=== PATIENT | male | born 1930 | race Caucasian/White ===

== ENCOUNTER 2019-08-21 13:01 | Inpatient (IN) | payer OTHER ==
[~2019-08-21] VITALS: Ht 180.3 cm; Wt 77.7 kg
[~2019-08-21 13:01] MED LIST: ASPIRIN81 MG PO; FINASTERIDE5 MG PO; HYDROCHLOROTHIA25 MG PO; LOSARTAN-HCTZ1 EACH PO; LOVASTATIN20 MG PO; METOPROLOL TART25 MG PO; PANTOPRAZOLE SO40 MG PO; TERAZOSIN HCL2 MG PO
--- OUTSIDE RECORDS SUMMARY | 2019-08-21 13:05 | XMS REPORT ---
Author Author 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 Allergies, Adverse Reactions, Alerts Allergy Name Allergy Type Status Severity Reaction(s) Onset Date Inactive Date Treating Clinician Comments tamsulosin DA Active U 2019-04-19 00:00:00 FLOMAX DA Active U 2008-06-17 00:00:00 No Known Contrast Allergies DA Active U 2008-06-17 00:00:00 No Known Food Allergies DA Active U 2008-06-17 00:00:00 No Known Other Allergies DA Active U 2008-06-17 00:00:00 Medications This patient has no known medications. Results Test Description Test Time Test Comments Text Results Atomic Results Result Comments TISSUE EXAM 2019-07-19 10:35:00 Surgical Pathology Report Case: [id number] Authorizing Provider: Mirta Iqbal MD Collected: 07/06/2019 1416 Ord ering Location: [address] Received: 07/06/2019 1521 SERVICE Pathologist: Pita Bradley MD Specimen: Biopsy, Liver The addendum is being issued to report the results of In situ hybridization for albumin RNA, performed and interpreted by [facility]. [address] [place] [id number].Per Provided reportIn-situ hybridization for albumin RNA on the neoplastic cells: POSITIVECommentThe significance of positive result of albumin MARIZOL on neoplastic cells suggests that the tumor is intrahepatic in origin (see reference). 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 Clinical and imaging correlation is recommended. Reference:Darleen Borrego, et al. Detection of Albumin Expression by RNA In Situ Hybridization Is a Sensitive and Specific Method for Identification of Hepatocellular Carcinomas and Intrahepatic Cholangiocarcinomas. Am J Clin Pathol. 2018 December 09;150(1):58-64See scanned report from PropathAddendum electronically signed by Pita Bradley MD on 07/19/2019 at 10:35 AMLIVER, ULTRASOUND-GUIDED NEEDLE BIOPSIES OF MASS- POORLY DIFFERENTIATED CARCINOMA- SEE COMMENT Signing Pathologist Direct Phone Line: [phone] signed by Pita Bradley MD on 07/13/2019 at 5:51 PMPreliminary result electronically signed by Pita Bradley MD on 07/11/2019 at 2:00 PMPreliminary result electronically signed by Terry Arnold MD on 07/07/2019 at 8:08 AMThe tumor shows poorly differentiated morphology. Occasional mucin vacuole suggests this to be an adenocarcinoma.The immunoprofile of CK7+, CK19+ is nonspecific. Clinical correlation is recommended.75651, 42370, 14797 x40Ptekcwgi in formalin labeled with the patient's name, MRN and "liver biopsy" are five iqbal-white to iqbal-red cylindrical soft tissue cores ranging from 0.5 to 1.5 cm in length and 0.1 cm in diameter each. Submitted entirely in one cassette following filtration. JM/plSection shows liver parenchyma infiltrated by poorly differentiated high grade atypical epithelial cells. No gland formation is seen. Occasional mucin vacuole is seen. Immunostains were performed with appropriate controls. The results are as followsThe tumor is positive for CK7, CK19 and CAM 5.2. The tumor is negative for CK20, cdx2, p63, p40, TTF1, glypican 3, ADAIR 3, PSA, Hepar and arginase. The interpretation of this case included the use of immunohistochemistry or special stains.Control Slides Examined: In-house known positive controls were evaluated along with the test tissue. These control slides run alongside of the patients sample show appropriate staining. Internal positive and negative controls when available are evaluated Immunohistochemistry technical testing was [place] [facility] where it was developed and its performance characteristics were determined. It has not been cleared or approved by the U.S. Food and Drug Administration. The FDA has determined that such clearance or approval is not necessary. The test is used for clinical purposes. It should not be regarded as investigational or for research. This laboratory is certified under the Clinical Laboratory Improvement Amendments of 1988 (CLIA-88) as qualified to perform high complexity clinical laboratory testing. U/S, BIOPSY, LIVER 2019-07-10 14:08:00 Reason for exam:->evaluate for metastasis. FINAL REPORT Ultrasound-guided right hepatic mass biopsy. History: Liver metastasis. Modality: Ultrasound Sedation: Versed 0.5 mg and fentanyl 25 mcg was given intravenously for conscious sedation. Vital signs were monitored throughout the procedure by a nurse, and remained stable. Physician intra- service time was 15 minutes. Anesthesia: Two percent Lidocaine without epinephrine. Approach: Right hepatic lobe mass Estimated blood loss: < 5 cc. Specimen: Four 18-gauge core biopsy specimens. pole lift operator: Himanshu Bowles MD. Poker In: None. Technique: Informed written consent was obtained. Discussion of risks, benefits, and alternatives were made with the patient. The patient expressed understanding and agreed to proceed. A universal timeout was performed prior to starting the procedure. The patient's liver was scanned with ultrasound multiple hypoechoic liver metastasis were identified. A 2.7 x 2.2 cm mass in the right hepatic lobe was targeted for biopsy. The patient's skin was marked, prepped with correcting, draped in usual sterile fashion. Local anesthesia was achieved with lidocaine. Under direct ultrasound guidance 17-gauge coaxial introducer needle was advanced into the targeted hepatic mass. Once the needle tip was within the mass inner stylette was removed and a 18-gauge side cutting Temno needle was used to obtain four core biopsy specimens of the mass under direct ultrasound guidance. The needles were removed. Post procedure imaging demonstrated no evidence of hemorrhage or hematoma formation. The patient tolerated the procedure well. Impression: Technically successful uncomplicated ultrasound-guided right hepatic mass biopsy as described above. Signed: Himanshu Bowles MDReport Verified Date/Time: 07/10/2019 14:08:16 Reading Location: [facility] P048 Angio Body Reading Room UE EXAM 2019-07-10 10:04:00 Surgical Pathology Report Case: [id number] Authorizing Provider: Lucien Gonzales Collected: 07/07/2019 0827 MD Toshia Ordering Location: [address] Received: 07/07/2019 1351 SERVICE Pathologist: Vaibhav Bruce MD Specimen: Biopsy, Gastroesophageal Junction, Schatzki ring biopsy at GE junction A. GASTROESOPHAGEAL JUNCTION, BIOPSY: - SQUAMOUS MUCOSA WITH NO SIGNIFICANT DIAGNOSTIC ABNORMALITY - NEGATIVE FOR INTRA-EPITHELIAL EOSINOPHILS - NEGATIVE FOR DYSPLASIA/ MALIGNANCY Signing Pathologist Direct Phone Line: [phone] signed by Vaibhav Bruce MD on 07/10/2019 at 10:04 [id number] dysphagiaBiopsy, Gastroesophageal JunctionReceived in formalin labeled with the patient's name, MRN and "GE junction biopsy" are three iqbal-white soft tissue fragments aggregating to 0.4 x 0.3 x 0.2 cm. Submitted entirely in one cassette following filtration. JM/plPerformed. BASIC METABOLIC PANEL 2019-07-07 06:53:00 SODIUM (BEAKER) (test vhxk=226) 133 meq/L 136-145 POTASSIUM (BEAKER) (test wpfc=569) 4.1 meq/L 3.5-5.1 CHLORIDE (BEAKER) (test mrzf=193) 103 meq/L 98-107 CO2 (BEAKER) (test dhcp=473) 22 meq/L 22-29 BLOOD UREA NITROGEN (BEAKER) (test luwk=238) 8 mg/dL 7-21 CREATININE (BEAKER) (test gsca=664) 0.74 mg/dL 0.57-1.25 GLUCOSE RANDOM (BEAKER) (test rmqe=285) 71 mg/dL 70-105 CALCIUM (BEAKER) (test lhub=130) 7.9 mg/dL 8.4-10.2 EGFR (BEAKER) (test wios=8157) 100 mL/min/1.73 sq m ESTIMATED GFR IS NOT ACCURATE CREATININE CLEARANCE IN PREDICTING GLOMERULAR FILTRATION RATE. ESTIMATED GFR IS NOT APPLICABLE FOR DIALYSIS PATIENTS. [id number] 06:40:00* Test Item Value Reference Range Comments MAGNESIUM (BEAKER) (test fufb=271) 1.9 mg/dL 1.6-2.6 HEPATIC FUNCTION [id number] 06:40:00* Test Item Value Reference Range Comments TOTAL PROTEIN (BEAKER) (test qupd=042) 5.4 gm/dL 6.0-8.3 ALBUMIN (BEAKER) (test bzqf=1239) 2.2 g/dL 3.5-5.0 BILIRUBIN TOTAL (BEAKER) (test sddh=377) 1.2 mg/dL 0.2-1.2 BILIRUBIN DIRECT (BEAKER) (test gmhk=719) 0.9 mg/dL 0.1-0.5 ALKALINE PHOSPHATASE (BEAKER) (test hwbq=277) 408 U/L 40-150 AST (SGOT) (BEAKER) (test sskz=169) 53 U/L 5-34 ALT (SGPT) (BEAKER) (test xvid=867) 23 U/L 6-55 CBC W/PLT COUNT & AUTO [id number] 05:48:00* Test Item Value Reference Range Comments WHITE BLOOD CELL COUNT (BEAKER) (test ygnl=104) 8.5 K/ L 3.5-10.5 RED BLOOD CELL COUNT (BEAKER) (test vfit=816) 4.11 M/ L 4.63-6.08 HEMOGLOBIN (BEAKER) (test gruk=733) 11.4 GM/DL 13.7-17.5 HEMATOCRIT (BEAKER) (test qmzl=052) 34.5 % 40.1-51.0 MEAN CORPUSCULAR VOLUME (BEAKER) (test ckaz=641) 83.9 fL 79.0-92.2 MEAN CORPUSCULAR HEMOGLOBIN (BEAKER) (test czho=016) 27.7 pg 25.7-32.2 MEAN CORPUSCULAR HEMOGLOBIN CONC (BEAKER) (test sdbm=810) 33.0 GM/DL 32.3-36.5 RED CELL DISTRIBUTION WIDTH (BEAKER) (test tgff=213) 16.9 % 11.6-14.4 PLATELET COUNT (BEAKER) (test wbgm=427) 176 K/CU MM 150-450 MEAN PLATELET VOLUME (BEAKER) (test gewc=642) 10.0 fL 9.4-12.4 NUCLEATED RED BLOOD CELLS (BEAKER) (test pdgz=961) 0 /100 WBC 0-0 NEUTROPHILS RELATIVE PERCENT (BEAKER) (test ylpo=763) 69 % LYMPHOCYTES RELATIVE PERCENT (BEAKER) (test nsqk=287) 15 % MONOCYTES RELATIVE PERCENT (BEAKER) (test blud=515) 11 % EOSINOPHILS RELATIVE PERCENT (BEAKER) (test efil=294) 4 % BASOPHILS RELATIVE PERCENT (BEAKER) (test xzah=374) 1 % NEUTROPHILS ABSOLUTE COUNT (BEAKER) (test afvk=682) 5.90 K/ L 1.78-5.38 LYMPHOCYTES ABSOLUTE COUNT (BEAKER) (test eyfz=425) 1.25 K/ L 1.32-3.57 MONOCYTES ABSOLUTE COUNT (BEAKER) (test qsjp=831) 0.97 K/ L 0.30-0.82 EOSINOPHILS ABSOLUTE COUNT (BEAKER) (test twjg=258) 0.34 K/ L 0.04-0.54 BASOPHILS ABSOLUTE COUNT (BEAKER) (test lfog=775) 0.04 K/ L 0.01-0.08 IMMATURE GRANULOCYTES-RELATIVE PERCENT (BEAKER) (test noed=6723) 0 % 0-1 BASIC METABOLIC [id number] 07:57:00* Test Item Value Reference Range Comments SODIUM (BEAKER) (test qeqi=007) 131 meq/L 136-145 POTASSIUM (BEAKER) (test uhfu=111) 4.0 meq/L 3.5-5.1 CHLORIDE (BEAKER) (test uotj=315) 103 meq/L 98-107 CO2 (BEAKER) (test hdqs=940) 23 meq/L 22-29 BLOOD UREA NITROGEN (BEAKER) (test ekla=585) 8 mg/dL 7-21 CREATININE (BEAKER) (test ellt=928) 0.76 mg/dL 0.57-1.25 GLUCOSE RANDOM (BEAKER) (test hkio=936) 78 mg/dL 70-105 CALCIUM (BEAKER) (test zyiq=895) 7.9 mg/dL 8.4-10.2 EGFR (BEAKER) (test syrm=7932) 97 mL/min/1.73 sq m ESTIMATED GFR IS NOT ACCURATE CREATININE CLEARANCE IN PREDICTING GLOMERULAR FILTRATION RATE. ESTIMATED GFR IS NOT APPLICABLE FOR DIALYSIS PATIENTS. [id number] 07:51:00* Test Item Value Reference Range Comments MAGNESIUM (BEAKER) (test vlnx=618) 1.8 mg/dL 1.6-2.6 HEPATIC FUNCTION [id number] 07:51:00* Test Item Value Reference Range Comments TOTAL PROTEIN (BEAKER) (test wrlw=265) 5.3 gm/dL 6.0-8.3 ALBUMIN (BEAKER) (test hnua=8303) 2.2 g/dL 3.5-5.0 BILIRUBIN TOTAL (BEAKER) (test bqib=530) 1.1 mg/dL 0.2-1.2 BILIRUBIN DIRECT (BEAKER) (test lora=259) 0.8 mg/dL 0.1-0.5 ALKALINE PHOSPHATASE (BEAKER) (test uwjp=752) 392 U/L 40-150 AST (SGOT) (BEAKER) (test gcql=433) 46 U/L 5-34 ALT (SGPT) (BEAKER) (test kacl=626) 18 U/L 6-55 CBC W/PLT COUNT & AUTO [id number] 07:18:00* Test Item Value Reference Range Comments WHITE BLOOD CELL COUNT (BEAKER) (test usqm=158) 8.2 K/ L 3.5-10.5 RED BLOOD CELL COUNT (BEAKER) (test wexo=162) 4.09 M/ L 4.63-6.08 HEMOGLOBIN (BEAKER) (test utyv=084) 11.2 GM/DL 13.7-17.5 HEMATOCRIT (BEAKER) (test bbte=891) 34.3 % 40.1-51.0 MEAN CORPUSCULAR VOLUME (BEAKER) (test wbhz=502) 83.9 fL 79.0-92.2 MEAN CORPUSCULAR HEMOGLOBIN (BEAKER) (test lfhf=297) 27.4 pg 25.7-32.2 MEAN CORPUSCULAR HEMOGLOBIN CONC (BEAKER) (test svtm=968) 32.7 GM/DL 32.3-36.5 RED CELL DISTRIBUTION WIDTH (BEAKER) (test lznj=516) 16.6 % 11.6-14.4 PLATELET COUNT (BEAKER) (test lvpr=816) 182 K/CU MM 150-450 MEAN PLATELET VOLUME (BEAKER) (test wieh=245) 9.5 fL 9.4-12.4 NUCLEATED RED BLOOD CELLS (BEAKER) (test nnvq=075) 0 /100 WBC 0-0 NEUTROPHILS RELATIVE PERCENT (BEAKER) (test dnpw=245) 65 % LYMPHOCYTES RELATIVE PERCENT (BEAKER) (test ywsh=385) 17 % MONOCYTES RELATIVE PERCENT (BEAKER) (test ises=725) 12 % EOSINOPHILS RELATIVE PERCENT (BEAKER) (test kvqs=196) 5 % BASOPHILS RELATIVE PERCENT (BEAKER) (test szrt=175) 0 % NEUTROPHILS ABSOLUTE COUNT (BEAKER) (test omjh=401) 5.32 K/ L 1.78-5.38 LYMPHOCYTES ABSOLUTE COUNT (BEAKER) (test rphc=296) 1.43 K/ L 1.32-3.57 MONOCYTES ABSOLUTE COUNT (BEAKER) (test akmd=528) 1.01 K/ L 0.30-0.82 EOSINOPHILS ABSOLUTE COUNT (BEAKER) (test tlcv=637) 0.40 K/ L 0.04-0.54 BASOPHILS ABSOLUTE COUNT (BEAKER) (test wmib=546) 0.03 K/ L 0.01-0.08 IMMATURE GRANULOCYTES-RELATIVE PERCENT (BEAKER) (test pcjf=5152) 1 % 0-1 CT, CHEST, WITH [id number] 22:27:00FINAL REPORT Chest CT with contrast CLINICAL HISTORY: Dysplasia, concerning for metastatic disease. TECHNIQUE: Contiguous axial images of the chest without contrast. This exam was performed according to the departmental dose optimization program which includes automated exposure control, adjustment of the mA and/or kV according to the patient size, and/or use of an iterative reconstruction technique. COMPARISON: None FINDINGS:Tree-in-bud airspace opacities in the right middle and upper lobes which can be seen in the setting of aspiration versus atypical infection. Scattered pulmonary nodules the largest of which is in the right lower lobe measuring 5 mm, indeterminate. Bilateral lower lobe dependent atelectasis. No pleural effusion. No pneumothorax. Multiple parenchymal calcifications in the right lower lobe may be sequela of prior granulomatous infection. Heart is mildly globally enlarged. Trace pericardial effusion. Amirah nary artery calcifications are moderate. The main pulmonary artery and aorta are normal in caliber. The thyroid gland is unremarkable. The esophagus is normal in caliber. Small hiatal hernia. Trachea is midline and patent. Prominent precard iac lymph node measuring 8 mm and paraesophageal lymph node measuring 5 mm in sh ort axis are nonspecific. Otherwise no mediastinal or hilar adenopathy is identi fied. No axillary adenopathy. No suspicious subcutaneous nodules or fluid collec tions. Focus of sclerosis in the T2 and T3 vertebral body is nonspecific. Flowin g anterior osteophytosis can be seen with dish. No acute fracture. Multiple ill- defined heterogeneously hypodense hepatic lesions are again seen, better evaluat ed on recent CT abdomen pelvis. IMPRESSION:Tree-in-bud airspace opacities in th e right middle and upper lobes which can be seen in the setting of aspiration ve rsus atypical infection. Correlate clinically. Multiple bilateral indeterminate pulmonary nodules measuring up to 5 mm recommend continued close attention on fo llow-up as metastatic disease can have this appearance. Prominent precardiac ly mph node measuring 8 mm and paraesophageal lymph node measuring 5 mm in short ax is are nonspecific. Recommend continued close attention on follow-up imaging. Sm all sclerotic foci in the T2 and T3 vertebral bodies as above. Nonspecific howev er bone scan could be obtained for further evaluation on a nonemergent basis. He patic metastatic disease that are evaluated on prior day CT abdomen pelvis. Sign ed: Joe Haile Verified Date/Time: 07/05/2019 22:27:17 Elec tronically signed by: JOE HAILE MD on 07/05/2019 10:27 PM PSA 2019-07-05 07:20:00* Test Item Value Reference Range Comments PROSTATE SPECIFIC ANTIGEN (BEAKER) (test uslk=571) 1.3 ng/mL 0.0-4.0 CARCINOEMBRYONIC ANTIGEN (CEA)2019-07-05 07:20:00* Test Item Value Reference Range Comments CARCINOEMBRYONIC ANTIGEN (BEAKER) (test oawp=073) 1.2 ng/mL 0.0-5.0 BASIC METABOLIC [id number] 06:37:00* Test Item Value Reference Range Comments SODIUM (BEAKER) (test fspg=820) 133 meq/L 136-145 POTASSIUM (BEAKER) (test fwry=887) 4.0 meq/L 3.5-5.1 CHLORIDE (BEAKER) (test fpgl=699) 103 meq/L 98-107 CO2 (BEAKER) (test rlgy=400) 25 meq/L 22-29 BLOOD UREA NITROGEN (BEAKER) (test uuxn=577) 9 mg/dL 7-21 CREATININE (BEAKER) (test oewy=528) 0.76 mg/dL 0.57-1.25 GLUCOSE RANDOM (BEAKER) (test fqsh=896) 80 mg/dL 70-105 CALCIUM (BEAKER) (test gfko=831) 7.9 mg/dL 8.4-10.2 EGFR (BEAKER) (test jcpy=7165) 97 mL/min/1.73 sq m ESTIMATED GFR IS NOT ACCURATE CREATININE CLEARANCE IN PREDICTING GLOMERULAR FILTRATION RATE. ESTIMATED GFR IS NOT APPLICABLE FOR DIALYSIS PATIENTS. [id number] 06:35:00* Test Item Value Reference Range Comments MAGNESIUM (BEAKER) (test nnmm=152) 1.9 mg/dL 1.6-2.6 HEPATIC FUNCTION [id number] 06:35:00* Test Item Value Reference Range Comments TOTAL PROTEIN (BEAKER) (test tseu=085) 5.4 gm/dL 6.0-8.3 ALBUMIN (BEAKER) (test djmi=1454) 2.2 g/dL 3.5-5.0 BILIRUBIN TOTAL (BEAKER) (test asbn=668) 1.0 mg/dL 0.2-1.2 BILIRUBIN DIRECT (BEAKER) (test dsrp=934) 0.8 mg/dL 0.1-0.5 ALKALINE PHOSPHATASE (BEAKER) (test nibh=500) 371 U/L 40-150 AST (SGOT) (BEAKER) (test rznz=440) 46 U/L 5-34 ALT (SGPT) (BEAKER) (test iawm=999) 21 U/L 6-55 URINALYSIS W/ [id number] 06:11:00* Test Item Value Reference Range Comments COLOR (BEAKER) (test fgug=101) Yellow CLARITY (BEAKER) (test nizk=502) Clear SPECIFIC GRAVITY UA (BEAKER) (test qmlf=337) > 1.001-1.035 PH UA (BEAKER) (test gxph=326) 6.0 5.0-8.0 PROTEIN UA (BEAKER) (test njvm=847) 20 mg/dL Negative GLUCOSE UA (BEAKER) (test fuwu=147) Negative Negative KETONES UA (BEAKER) (test gajl=419) Negative Negative BILIRUBIN UA (BEAKER) (test ytow=088) Negative Negative BLOOD UA (BEAKER) (test prgl=086) Negative Negative NITRITE UA (BEAKER) (test gxiy=570) Negative Negative LEUKOCYTE ESTERASE UA (BEAKER) (test bcpp=126) Negative Negative UROBILINOGEN UA (BEAKER) (test hruj=857) 2.0 mg/dL 0.2-1.0 RBC UA (BEAKER) (test xxhq=913) 1 /HPF WBC UA (BEAKER) (test avqj=380) 1 /HPF MUCUS (BEAKER) (test shwb=9593) Few SQUAMOUS EPITHELIAL (BEAKER) (test lxtd=457) < /HPF SOURCE(BEAKER) (test arkg=6725) PROTHROMBIN [id number] 06:04:00* Test Item Value Reference Range Comments PROTIME (BEAKER) (test kqbr=826) 15.7 seconds 11.9-14.2 INR (BEAKER) (test qqux=616) 1.3 <=5.9 Effective 12/07/2018: PT Reference Range ChangeNew: 11.9-14.2 Previous: 11.7-14. 7RECOMMENDED COUMADIN/WARFARIN INR THERAPY RANGESSTANDARD DOSE: 2.0-3.0 Include s: PROPHYLAXIS for venous thrombosis, systemic embolization; TREATMENT for venou s thrombosis and/or pulmonary embolus.HIGH RISK: Target INR is 2.5-3.5 for patie nts wiht mechanical heart valves.CBC W/PLT COUNT & AUTO [id number] 05:57:00* Test Item Value Reference Range Comments WHITE BLOOD CELL COUNT (BEAKER) (test qcfd=842) 7.5 K/ L 3.5-10.5 RED BLOOD CELL COUNT (BEAKER) (test kiuf=410) 4.04 M/ L 4.63-6.08 HEMOGLOBIN (BEAKER) (test odsl=686) 11.1 GM/DL 13.7-17.5 HEMATOCRIT (BEAKER) (test gpkl=985) 33.9 % 40.1-51.0 MEAN CORPUSCULAR VOLUME (BEAKER) (test nwtq=897) 83.9 fL 79.0-92.2 MEAN CORPUSCULAR HEMOGLOBIN (BEAKER) (test drrb=641) 27.5 pg 25.7-32.2 MEAN CORPUSCULAR HEMOGLOBIN CONC (BEAKER) (test ttxj=597) 32.7 GM/DL 32.3-36.5 RED CELL DISTRIBUTION WIDTH (BEAKER) (test fgvv=207) 16.6 % 11.6-14.4 PLATELET COUNT (BEAKER) (test pcfu=859) 169 K/CU MM 150-450 MEAN PLATELET VOLUME (BEAKER) (test lwie=820) 9.4 fL 9.4-12.4 NUCLEATED RED BLOOD CELLS (BEAKER) (test shym=073) 0 /100 WBC 0-0 NEUTROPHILS RELATIVE PERCENT (BEAKER) (test ubkj=384) 66 % LYMPHOCYTES RELATIVE PERCENT (BEAKER) (test zsmm=009) 17 % MONOCYTES RELATIVE PERCENT (BEAKER) (test flry=189) 11 % EOSINOPHILS RELATIVE PERCENT (BEAKER) (test yzco=372) 5 % BASOPHILS RELATIVE PERCENT (BEAKER) (test iypt=671) 0 % NEUTROPHILS ABSOLUTE COUNT (BEAKER) (test awar=742) 4.94 K/ L 1.78-5.38 LYMPHOCYTES ABSOLUTE COUNT (BEAKER) (test lveb=031) 1.30 K/ L 1.32-3.57 MONOCYTES ABSOLUTE COUNT (BEAKER) (test otvx=743) 0.83 K/ L 0.30-0.82 EOSINOPHILS ABSOLUTE COUNT (BEAKER) (test qgxp=702) 0.40 K/ L 0.04-0.54 BASOPHILS ABSOLUTE COUNT (BEAKER) (test nzpz=073) 0.02 K/ L 0.01-0.08 IMMATURE GRANULOCYTES-RELATIVE PERCENT (BEAKER) (test wsre=3109) 1 % 0-1 FL, ESOPH, SWALLOW FUNCTION, WITH CINE OR [id number] 15:19:00Reason for exam:->ABDOMINAL PAINReason for exam:->inability to tolerate solidReason for exam:->weight lossFINAL REPORT Barium esophagogram Clinical History: ABDOMINAL PAINinability to tolerate solidweight loss Discussion: Effervescent crystals, thick barium, and thin barium are given to the patient to drink, without difficulties. The esophageal motility, caliber is normal. There is persistent narrowing at the GE junction without delayed emptying of contrast. Moderate to severe gastroesophageal reflux is noted. A tiny hiatal hernia is noted. Fluoro time: 1.47 minutes Number of images obtained: 15 Impression: Narrowing at the GE junction, which can be correlated with endoscopy when clinically appropriate. Moderate to severe gastroesophageal reflux. Tiny hiatal hernia. Signed: Concepcion Luceroort Verified Date/Time: 07/04/2019 15:19:10 Reading Location: [facility] B1 C013X Ortho Consult Reading Room , ABDOMEN 2019-07-04 14:50:00Reason for exam:->Abdominal painWhat is the patient's sedation requirement?->No SedationFINAL REPORT CT abdomen and pelvis with contrast History: abdominal pain Comparison: none Technique: serial axial imaging was performed following up to 100cc of non ionic iodinated intravenous contrast as per departmental protocol. Multiplanar images are reconstructed and reviewed when indicated. This CT examination is performed using one or more of the following dose reduction techniques: Automated exposure control, adjustment of the mA and /or kV according to patient size, and/or use of iterative reconstruction technique. Findings: Linear areas of hyperattenuation within the right lower lobe probably related to cement extravasation. Trace pericardial effusion. Small sliding hiatal hernia. Unremarkable appearance of pancreas and spleen. Numerous ill-defined hypodense peripherally enhancing lesions throughout the liver. These involve both lobes, with the largest individual lesion measuring 7.6 cm in size. The central portal and hepatic veins appear patent. There is no intrahepatic biliary dilation. The patient is status post cholecystectomy. Unremarkable appearance of adrenal glands, kidneys, ureters, and urinary bladder. The prostate gland is severely enlarged. No small or large bowel obstruction. No apparent bowel wall thicke stefanie. No findings to indicate acute appendicitis. A small amount of free fluid is seen within the pelvis. Upper abdominal retroperitoneal lymphadenopathy is n oted, with individual lymph nodes measuring up to 2.5 cm in size.. No abdomina l aortic aneurysm. No aggressive osseous lesion. Impression: 1. Extensive hepa tic metastatic disease.2. Upper abdominal retroperitoneal lymphadenopathy, also concerning for metastasis.3. Severely enlarged prostate gland. Signed: Lorenzo Biggs MDReport Verified Date/Time: 07/04/2019 14:50:22 Reading Location: [facility] Radiology Reading Room Electronically signed by: LORENZO BIGGS MD on 06/12 02:50 PM [id number] 13:28:00* Test Item Value Reference Range Comments LIPASE (BEAKER) (test pczy=339) 11 U/L 8-78 BASIC METABOLIC [id number] 13:28:00* Test Item Value Reference Range Comments SODIUM (BEAKER) (test jwby=778) 132 meq/L 136-145 POTASSIUM (BEAKER) (test znzj=921) 4.2 meq/L 3.5-5.1 CHLORIDE (BEAKER) (test jjhw=824) 102 meq/L 98-107 CO2 (BEAKER) (test hbhj=794) 22 meq/L 22-29 BLOOD UREA NITROGEN (BEAKER) (test nypt=348) 13 mg/dL 7-21 CREATININE (BEAKER) (test puxb=678) 1.09 mg/dL 0.57-1.25 GLUCOSE RANDOM (BEAKER) (test crgt=558) 114 mg/dL 70-105 CALCIUM (BEAKER) (test hxvu=361) 8.6 mg/dL 8.4-10.2 EGFR (BEAKER) (test dpad=5257) 64 mL/min/1.73 sq m ESTIMATED GFR IS NOT ACCURATE CREATININE CLEARANCE IN PREDICTING GLOMERULAR FILTRATION RATE. ESTIMATED GFR IS NOT APPLICABLE FOR DIALYSIS PATIENTS. HEPATIC FUNCTION [id number] 13:28:00* Test Item Value Reference Range Comments TOTAL PROTEIN (BEAKER) (test wxle=371) 7.0 gm/dL 6.0-8.3 ALBUMIN (BEAKER) (test pqtj=4401) 3.0 g/dL 3.5-5.0 BILIRUBIN TOTAL (BEAKER) (test kmkx=193) 1.0 mg/dL 0.2-1.2 BILIRUBIN DIRECT (BEAKER) (test gxhg=270) 0.7 mg/dL 0.1-0.5 ALKALINE PHOSPHATASE (BEAKER) (test udtf=666) 495 U/L 40-150 AST (SGOT) (BEAKER) (test fgyc=304) 49 U/L 5-34 ALT (SGPT) (BEAKER) (test thdm=532) 25 U/L 6-55 CBC W/PLT COUNT & AUTO [id number] 13:11:00* Test Item Value Reference Range Comments WHITE BLOOD CELL COUNT (BEAKER) (test vwhj=401) 10.4 K/ L 3.5-10.5 RED BLOOD CELL COUNT (BEAKER) (test xiqq=849) 4.68 M/ L 4.63-6.08 HEMOGLOBIN (BEAKER) (test uvdu=352) 13.2 GM/DL 13.7-17.5 HEMATOCRIT (BEAKER) (test yfxk=374) 39.4 % 40.1-51.0 MEAN CORPUSCULAR VOLUME (BEAKER) (test lsgd=315) 84.2 fL 79.0-92.2 MEAN CORPUSCULAR HEMOGLOBIN (BEAKER) (test yjcl=085) 28.2 pg 25.7-32.2 MEAN CORPUSCULAR HEMOGLOBIN CONC (BEAKER) (test lcnq=343) 33.5 GM/DL 32.3-36.5 RED CELL DISTRIBUTION WIDTH (BEAKER) (test wzoy=068) 16.8 % 11.6-14.4 PLATELET COUNT (BEAKER) (test secr=311) 227 K/CU MM 150-450 MEAN PLATELET VOLUME (BEAKER) (test hzqa=813) 9.3 fL 9.4-12.4 NUCLEATED RED BLOOD CELLS (BEAKER) (test bohp=861) 0 /100 WBC 0-0 NEUTROPHILS RELATIVE PERCENT (BEAKER) (test acxg=692) 73 % LYMPHOCYTES RELATIVE PERCENT (BEAKER) (test lioc=516) 14 % MONOCYTES RELATIVE PERCENT (BEAKER) (test qakl=279) 10 % EOSINOPHILS RELATIVE PERCENT (BEAKER) (test zkdf=167) 2 % BASOPHILS RELATIVE PERCENT (BEAKER) (test trax=508) 0 % NEUTROPHILS ABSOLUTE COUNT (BEAKER) (test xluv=541) 7.60 K/ L 1.78-5.38 LYMPHOCYTES ABSOLUTE COUNT (BEAKER) (test anlk=000) 1.40 K/ L 1.32-3.57 MONOCYTES ABSOLUTE COUNT (BEAKER) (test rnen=661) 1.01 K/ L 0.30-0.82 EOSINOPHILS ABSOLUTE COUNT (BEAKER) (test zuli=447) 0.23 K/ L 0.04-0.54 BASOPHILS ABSOLUTE COUNT (BEAKER) (test fxrj=458) 0.04 K/ L 0.01-0.08 IMMATURE GRANULOCYTES-RELATIVE PERCENT (BEAKER) (test sogx=9688) 1 % 0-1 - CT ABD PELVIS W/O [id number] 21:16:00 Name: KUN CASTELLANO [employer] : 1930 Age/S: 89 / M [address] [facility] Unit #: [id number] Loc: [place] [address] Phys: Marcelino Jewell MD Acct: [id number] Dis Date: Status: ADM IN PHONE #: [phone] Exam Date: 04/19/20192018 FAX #: [phone] Reason: ABD PAIN EXAMS: CPT CODE: [id number] CT ABD PELVIS W/O CONT 23073 REASON FOR EXAM: ABD PAIN EXAM ORDER DATE: 04/19/2019 6:18 PM Ordering M.D.: Marcelino Godinez MD PROCEDURE: - CT ABD PELVIS W/O CONT noncontrast axial CT images were acquired through the abdomen/pelvis at 5 mm intervals. Sagittal and coronal reformatted images were generated. Automated exposure control was utilized for this reduction. Phases of contrast: None COMPARISON: None FINDINGS: The absence of IV contrast limits sensitivity of this exam for the detection of soft tissue pathology Visualized thorax: There are a few noncalcified solid nodules in the visualized lung bases bilaterally with the largest nodule measuring 6 cm in size (series 3 image 14). There is atherosclerotic disease in the left anterior descending, left circumflex, and diagonal coronary arteries. Hepatobiliary system: Prior cholecystectomy. Hepatic parenchyma appears grossly normal. There is a q uestionable nodule arising from the anterior surface of hepatic segment IV b (2/37). Pancreas: Grossly normal Spleen: Grossly n ormal Adrenal glands: Grossly normal Genitourinary s ystem: Prostate gland is markedly enlarged. Otherwise grossly normal Gastrointestinal tract and appendix: There are scattered diverticula in the sigmoid colon but no evidence of diverticulitis. Appendix is not clearly visualized but no inflammatory changes are seen in the expected region of the appendix. The stomach and small bowel are within normal limi ts. PAGE 1 Signed Report ( CONTINUED) Name: KUN CASTELLANO [employer] : 1930 Age/S: 89 / M [address] nit #: [id number] Loc: [place] [address] Phys: Marcelino Jewell MD Acct: [id number] Dis Date: Status: ADM IN PHONE #: [phone] Exam Date: 04/19/20192018 FAX #: [phone] Reason: ABD PAIN EXAMS: CPT CODE: [id number] CT ABD PELVIS W/O CONT 94569 <Continued> Abdominal vascular structures: Calcified atherosclerotic plaques are scattered throughout the abdominal aorta. Peritoneum and retrop eritoneum: No free fluid or free air. No omental or mesenteric masses. N o abnormal lymph nodes. Musculoskeletal structures and abdominal w all: Large fat-containing hernias are present bilaterally. No inflammatory changes are present within the hernia sacs. Severe degenerative changes a re seen in the visualized spine and there appears to be severe foraminal n arrowing bilaterally at L5-S1 and on the right-sided L4-L5. IMPRESSION: Questionable nodule arising from the anterior surface of h epatic segment IVb. This can be further evaluated with a nonemergent contrast-enhanced CT or MRI of the liver. Mild colonic diverticulos is without evidence of diverticulitis. Marked prostate enlargement. This can be further evaluated with nonemergent ultrasound if the patient is agreeable. Multiple noncalcified nodules in the visualized lungs. These do not warrant further evaluation unless the patient is at increased ris k for malignancy, such as a smoker. If the patient is at increased risk for malignancy then a one-year follow-up CT scan may be considered if th e patient is agreeable. at 2116 Reported and signed by: Luis Enrique Jansen MD CC: Christine Amador MD; Marcelino Jewell Technologist:RT MCKENNA(R) CT CTDI: DLP: Trnscb D ate/Time: 04/19/2019 (2115) [email or web address] Orig Print D/T: S: 04/19/2019 (2118) PAGE 2 Signed Report - XR CHEST 2 [id number] 20:58:00 FAX: Christine Black MD [phone] [place]: St: ADM FAX: Marcelino Jewell [phone] Name: KUN CASTELLANO [facility] : 1930 Age/S: 89/M [address] Unit #: [id number] Loc: V.4027 [place] [address] Phys: Marcelino Jewell MD Acct: [id number] Dis Date: Status: ADM IN PHONE #: [phone] Exam Date: 04/19/20192018 FAX #: [phone] Reason: CHEST PAIN EXAMS: CPT CODE: [id number] XR CHEST 2 V 55613 REASON FOR EXAM: CHEST PAIN Exam Order Date: 04/19/2019 12:00 AM Ordering M.D.: Marcelino Godinez MD PROCEDURE: - XR CHEST 2 V COMPARISON: 2 view chest x-ray March 05, 2017 FINDINGS: The lungs are clear. There is no pleural effusion or pneumothorax. Pulmonary vascularity is within yan l limits. Cardiomediastinal silhouette is normal in size for techn ique. The mediastinal contours are within normal limits. The re are degenerative changes throughout the spine with confluent osteophyte s. This may represent diffuse intrahepatic skeletal hyperostosis. The visu alized upper abdomen is within normal limits. IMPRESSION : No acute cardiopulmonary process. at 2057 Reported and signed by: Luis Enrique Jansen MD CC: Christine Amador MD; Marcelino Jewell Technologist: RT Carroll(R Trnscrd Date/Time/By: 04/19/2019 (2057) : By: [email or web address] PAGE 1 Signed Report COMPREHENSIVE METABOLIC [id number] 19:43:00* Test Item Value Reference Range Comments SODIUM (test code=NA) 137 mmol/L 136-145 POTASSIUM (test code=K) 4.3 mmol/L 3.5-5.1 CHLORIDE (test code=CL) 104.0 mmol/L 98-107 CARBON DIOXIDE (test code=CO2) 26.0 mmol/L 21-32 ANION GAP (test code=GAP) 11.3 10-20 GLUCOSE (test code=GLU) 86 mg/dL 74-106 BLOOD UREA NITROGEN (test code=BUN) 12 mg/dL 7-18 GLOMERULAR FILTRATION RATE (test code=GFR) > 60 mL/min >=60 Estimated GFR by using Modified MDRD formula.Chronic kidney disease is defined as either kidney damageor GFR <60 mL/min/1.73 m2 for >3 months. CREATININE (test code=CREAT) 0.90 mg/dL 0.7-1.3 BUN/CREATININE RATIO (test code=BUN/CREA) 13.3 10-20 TOTAL PROTEIN (test code=PROT) 6.6 gram/dL 6.4-8.2 ALBUMIN (test code=ALB) 2.6 g/dL 3.4-5.0 GLOBULIN (test code=GLOB) 4.0 gram/dL 2.7-4.2 ALBUMIN/GLOBULIN RATIO (test code=A/G) 0.6 0.75-1.50 CALCIUM (test code=CA) 8.6 mg/dL 8.5-10.1 BILIRUBIN TOTAL (test code=BILT) 0.70 mg/dL 0.0-1.0 SGOT/AST (test code=AST) 46 IUnit/L 15-37 SGPT/ALT (test code=ALT) 29 IUnit/L 12-78 ALKALINE PHOSPHATASE TOTAL (test code=ALKP) 322 IUnit/L 45-117 Note change in reference range due to change in reagent. [id number] 19:43:00* Test Item Value Reference Range Comments LIPASE (test code=LIP) 111 U/L 73.0-393.0 THYROID PROFILE [id number] 19:43:00* Test Item Value Reference Range Comments T3 UPTAKE (test code=T3UP) 40.0 % 30.0-40.0 T4 (THYROXINE) (test code=T4) 6.7 ug/dL 4.5-13.9 T7 (FREE THYROXINE INDEX) (test code=T7) 2.68 FTI 1.3-5.1 THYROID STIMULATING HORMONE (test code=TSH) 3.680 uIU/mL 0.36-3.74 TSH REFERENCE RANGES: EUTHYROID: 0.35 - 4.3 mIU/mL HYPO : > 5.5 mIU/mL HYPER : < 0.35 mIU/mL COMPREHENSIVE METABOLIC [id number] 19:31:00* Test Item Value Reference Range Comments SODIUM (test code=NA) 137 mmol/L 136-145 POTASSIUM (test code=K) 4.3 mmol/L 3.5-5.1 CHLORIDE (test code=CL) 104.0 mmol/L 98-107 CARBON DIOXIDE (test code=CO2) mmol/L 21-32 ANION GAP (test code=GAP) 10-20 GLUCOSE (test code=GLU) mg/dL 74-106 BLOOD UREA NITROGEN (test code=BUN) mg/dL 7-18 GLOMERULAR FILTRATION RATE (test code=GFR) mL/min >=60 CREATININE (test code=CREAT) mg/dL 0.7-1.3 BUN/CREATININE RATIO (test code=BUN/CREA) 10-20 TOTAL PROTEIN (test code=PROT) gram/dL 6.4-8.2 ALBUMIN (test code=ALB) g/dL 3.4-5.0 GLOBULIN (test code=GLOB) gram/dL 2.7-4.2 ALBUMIN/GLOBULIN RATIO (test code=A/G) 0.75-1.50 CALCIUM (test code=CA) mg/dL 8.5-10.1 BILIRUBIN TOTAL (test code=BILT) mg/dL 0.0-1.0 SGOT/AST (test code=AST) IUnit/L 15-37 SGPT/ALT (test code=ALT) IUnit/L 12-78 ALKALINE PHOSPHATASE TOTAL (test code=ALKP) IUnit/L 45-117 [id number] 19:31:00* Test Item Value Reference Range Comments LIPASE (test code=LIP) U/L 73.0-393.0 THYROID PROFILE [id number] 19:31:00* Test Item Value Reference Range Comments T3 UPTAKE (test code=T3UP) % 30.0-40.0 T4 (THYROXINE) (test code=T4) ug/dL 4.5-13.9 T7 (FREE THYROXINE INDEX) (test code=T7) FTI 1.3-5.1 THYROID STIMULATING HORMONE (test code=TSH) uIU/mL 0.36-3.74 CBC W/AUTO [id number] 19:20:00* Test Item Value Reference Range Comments WHITE BLOOD CELL (test code=WBC) 10.0 K/mm3 4.5-12.5 RED BLOOD CELL (test code=RBC) 4.53 mill/mm3 4.0-5.8 HEMOGLOBIN (test code=HGB) 13.1 gram/dL 13.0-17.5 HEMATOCRIT (test code=HCT) 39.0 % 42.0-52.0 MEAN CELL VOLUME (test code=MCV) 86.1 fL 80-98 MEAN CELL HGB (test code=MCH) 28.9 picogram 27.0-33.0 MEAN CELL HGB CONCETRATION (test code=MCHC) 33.6 gram/dL 33.0-36.0 RED CELL DISTRIBUTION WIDTH (test code=RDW) 13.3 % 11.6-16.2 RED CELL DISTRIBUTION WIDTH SD (test code=RDW-SD) 41.4 fL 37.0-51.0 PLATELET COUNT (test code=PLT) 220 K/mm3 150-450 MEAN PLATELET VOLUME (test code=MPV) 9.4 fL 6.7-11.0 NEUTROPHIL % (test code=NT%) 60.1 % 39.0-69.0 IMMATURE GRANULOCYTE % (test code=IG%) 0.3 % 0.0-5.0 LYMPHOCYTE % (test code=LY%) 17.5 % 25.0-55.0 MONOCYTE % (test code=MO%) 12.5 % 0.0-10.0 EOSINOPHIL % (test code=EO%) 9.1 % 0.0-5.0 BASOPHIL % (test code=BA%) 0.5 % 0.0-1.0 NUCLEATED RBC % (test code=NRBC%) 0.0 % 0-0 NEUTROPHIL # (test code=NT#) 6.03 K/mm3 1.8-7.7 IMMATURE GRANULOCYTE # (test code=IG#) 0.03 x10 3/uL 0-0.03 LYMPHOCYTE # (test code=LY#) 1.76 K/mm3 1.0-5.0 MONOCYTE # (test code=MO#) 1.26 K/mm3 0-0.8 EOSINOPHIL # (test code=EO#) 0.91 K/mm3 0.0-0.5 BASOPHIL # (test code=BA#) 0.05 K/mm3 0.0-0.2 NUCLEATED RBC # (test code=NRBC#) 0.00 K/mm3 0.0-0.1
[2019-08-21 14:46] LABS: BASOPHILS # (AUTO) 0.1 (0.0-0.1); BASOPHILS % 0.4 % (0.0-1.0); EOSINOPHILS # (AUTO) 0.1 (0.0-0.4); EOSINOPHILS % 0.9 % (0.0-6.0); HEMATOCRIT 40.9 % (38.2-49.6); HEMOGLOBIN 14.1 g/dL (14.0-18.0); LYMPHOCYTES # (AUTO) 0.5 (1.0-3.2); LYMPHOCYTES % 3.7 % (18.0-39.1); MEAN CORPUSCULAR HEMOGLOBIN 28.2 pg (28-32); MEAN CORPUSCULAR HGB CONC 34.5 g/dL (31-35); MEAN CORPUSCULAR VOLUME 81.8 fL (81-99); MONOCYTES # (AUTO) 0.1 (0.2-0.8); MONOCYTES % 0.9 % (4.4-11.3); NEUTROPHILS # (AUTO) 12.8 (2.1-6.9); NEUTROPHILS % 91.7 % (38.7-80.0); RED CELL DISTRIBUTION WIDTH 18.9 % (11.7-14.4)
[2019-08-21 14:52] LABS: PLATELET COUNT 47 x10e3/uL (140-360)
[2019-08-21] MEDS ORDERED: MORPHINE SULFATE 2 MG/ML SYR 1ML IV STA (14:58)
[2019-08-21] MEDS ORDERED: ONDANSETRON HCL INJ 2MG/ML 2ML 2 MG/ML VIAL IV ONE ×2 (14:58→19:15)
[2019-08-21 15:08] LABS: ALBUMIN/GLOBULIN RATIO 0.5 (0.8-2.0); ANION GAP 19.9 mmol/L (8-16); CREATININE, SERUM 1.6 mg/dL (0.72-1.25); POTASSIUM 3.9 mmol/L (3.5-5.1)
[2019-08-21] MEDS ORDERED: MORPHINE SULFATE INJ 4 MG/ML INJ 1ML IV ONE ×2 (15:15→19:15)
[2019-08-21] MEDS ORDERED: SODIUM CHLORIDE 0.9% 500ML 500 ML IV ONE (15:15)
[2019-08-21] MEDS ORDERED: SODIUM CHLORIDE 0.9% 500ML 500 ML ONE (15:21)
[2019-08-21] MEDS ORDERED: CEFEPIME HCL 1 GM VIAL IV SCH (15:30)
[2019-08-21] MEDS ORDERED: CEFEPIME 1GM/NS 0.9% 50 ML 50 ML IV ONE (15:45)
[2019-08-21] MEDS ORDERED: SODIUM CHLORIDE 0.9% 1000ML 1,000 ML IV ONE (16:15)
--- NOTE | 2019-08-21 18:17 | Diagnostic Imaging Report ---
Exam: CT chest, abdomen, and pelvis Clinical history: Shortness of breath Technique: Helical images of the chest, abdomen, and pelvis were obtained after IV contrast demonstration DOSE REDUCTION: The exams was performed according to the departmental dose-optimization program which includes automated exposure control, adjustment of the mA and/or kV according to patient size and/or use of iterative reconstruction technique. Findings: Chest: Bilateral patchy airway opacities are noted in the right upper and bilateral lower lobes which may represent pneumonitis. Hyperdense material is also noted in the right lung base, this may be associated with prior aspiration. There is no evidence of mediastinal or hilar lymphadenopathy. The tracheobronchial tree is clear. The cardiac size is within normal limits. The great vessels are normal in caliber and configuration. Abdomen and pelvis: Multiple rim enhancing lesions are noted throughout the liver measuring up to 5.2 cm in diameter likely represents primary or metastatic disease. The gallbladder has been removed. The spleen, pancreas, adrenal glands, and kidneys are unremarkable. The small and large bowels are normal in caliber without evidence of obstruction. Aorta and IVC are normal in caliber. There is no evidence of lymphadenopathy or free fluid. The bladder is unremarkable. The seminal vesicles are within normal limits. The prostate is significantly enlarged measuring 6.6 x 6.4 cm. No suspicious osteoblastic or lytic lesions are noted. Impression: 1. Multiple rim-enhancing lesions throughout the liver most compatible with neoplasm. 2. Bilateral airway opacities likely represent pneumonitis. Hyperdense materials also seen in the right lung base which may be associated with aspiration. 3. Severe enlargement of the prostate gland. Signed by: Dr. Wiley Mariee MD on 08/21/2019 6:15 PM
[2019-08-21] MEDS ORDERED: CEFTRIAXONE SOD 1 GRAM/0.9% SOD CHL 50ML BAG IV SCH (18:30)
[2019-08-21] MEDS ORDERED: VANCOMYCIN HCL 1GM/NS 250 ML BAG IV SCH (18:30)
[2019-08-21] MEDS ORDERED: SODIUM CHLORIDE 0.9% 50ML 50 ML ONE (18:38)
[2019-08-21] MEDS ORDERED: IOPAMIDOL 370 MG/ML 200 ML INFUS..BTL INJ ONE (18:38)
[2019-08-21] MEDS ORDERED: SODIUM CHLORIDE 0.9% 1000ML 1,000 ML IV STA (18:46)
[2019-08-21] MEDS: VANCOMYCIN 1GM/NS 250 ML 250 ML IV SCH (18:55)
[2019-08-21] MEDS ORDERED: HYDROCODONE/APAP 10MG-325MG TAB ONE (20:19)
[2019-08-21] MEDS: HYDROCODONE/APAP 10MG-325MG TAB PO PRN (20:20)
[2019-08-21] MEDS ORDERED: CEFTRIAXONE SOD 1 GM/NS 50 ML 50 ML IV SCH (21:00)
--- NOTE | 2019-08-21 21:00 | NUR ---
Pt admitted to room 295 via stretcher from living at home alone. Transfer to bed x2 assist. Pt alert to name, hospital. Confusion to time. Diagnosis: PNA. Hx: Lung Cancer stage IV and HTN. Per family Pt lives alone, but with recent weakness unable to walk by himself and has not eaten in weeks. Unknown last BM. Urine yellow, clear, no odor. Generalized skin abrasions and scratches healed and healing. Left knee S/T. Sacrum stage I redness. Lungs sounds diminished. tele#16 SR. Bowel sounds hypoactive. Pt/family oriented to room. Call light within reach. Bed low and locked. Bed alarm on.
[2019-08-21 21:10] LABS: BAND NEUTROPHILS % (MANUAL) 1 %; LYMPHOCYTES % (MANUAL) 8 % (19-48); MONOCYTES % (MANUAL) 1 % (3.4-9.0); NEUTROPHILS % (MANUAL) 89 % (40-74); PLATELET ESTIMATE MARKEDLY DECREASED; PLATELET MORPHOLOGY COMMENT NORMAL; RBC MORPHOLOGY COMMENT NORMAL
[2019-08-21 21:34] VITALS: BP 118/70
[2019-08-21 21:36] VITALS: BP_SYST 105; BP_SYST 118; BP_DIAS 70
--- NOTE | 2019-08-21 22:40 | NUR ---
Pt c/o severe indigestion. Called Dr. Jewell ordered Maalox 30ml every 6hrs prn.
[2019-08-21] MEDS ORDERED: MAGNESIUM/ALUMINUM/SIMETHICONE 30 ML UDC PO PRN (23:45)
[2019-08-22] VITALS (10 sets, daily range): BP systolic 88–167; BP diastolic 62–94
--- NOTE | 2019-08-22 01:57 | NUR ---
Pt has increased anxiety continuously tries to get OOB without assistance, removed tele monitor for 2nd time. Niece at bedside refuses tele monitor if Pt does not keep leads on. Pt in bed with bed monitor on. Family at bedside. Will continue to monitor.
--- NOTE | 2019-08-22 08:50 | NUR ---
Lactic acid 4.4. Notified Dr. Jewell and he states he is herein building and will come see patient momentarily.
[2019-08-22] MEDS: SODIUM CHLORIDE 0.9% 1000ML 1,000 ML IV SCH (09:17)
[2019-08-22] MEDS: HYDROCODONE/APAP 10MG-325MG TAB PO PRN (09:21)
[2019-08-22] MEDS ORDERED: BENZONATATE 100 MG CAP PO PRN (09:30)
[2019-08-22] MEDS ORDERED: HYDROMORPHONE 1MG/1ML INJ IV PRN (09:30)
[2019-08-22] MEDS ORDERED: MAGNESIUM HYDROXIDE 30 ML UDC PO PRN (09:30)
--- NOTE | 2019-08-22 09:30 | NUR ---
PT NIECE SIGNED CHOICE FOR [facility] FILED CHOICE IN CHART AND CONTACTED REP TO SEE FAMILY.
[2019-08-22] MEDS ORDERED: ONDANSETRON HCL INJ 2MG/ML 2ML 2 MG/ML VIAL IV PRN (09:45)
[2019-08-22] MEDS ORDERED: ALBUTEROL/IPRATROPIUM 3 ML NEB NEB PRN (09:45)
[2019-08-22] MEDS: ALPRAZOLAM 0.5 MG TAB PO PRN ×2 (10:06→23:50)
[2019-08-22] MEDS: METHYLPREDNISOLONE SOD SUCC 40 MG/ML VIAL 1ML IV SCH ×2 (10:29→16:24)
[2019-08-22] MEDS: FAMOTIDINE 20 MG/2 ML VIAL IV SCH ×2 (10:29→16:24)
[2019-08-22] MEDS: SENNOSIDES 8.6 MG TAB PO SCH ×2 (10:30→17:00)
[2019-08-22] MEDS: PIPERACILLIN/TAZO 2.25 GM 50 ML IV SCH ×2 (10:30→16:24)
[2019-08-22] MEDS: SUCRALFATE 1 GM/10 ML SUSP PO SCH ×3 (12:44→21:00)
[2019-08-22] MEDS: ALBUTEROL/IPRATROPIUM 3 ML NEB NEB SCH ×2 (14:30→20:05)
[2019-08-22] MEDS: BENZONATATE 100 MG CAP PO SCH ×2 (15:00→21:00)
--- NOTE | 2019-08-22 15:34 | NUR ---
CALLED [facility]ORDS TO SEE WHERE MD NOT SCARFER OPERATOR IS, NOT VIEWABLE IN CHART TO FAX TO HOSPICE COMPANY. [facility] STATES THEY ARE LOOKING INTO IT.
[2019-08-22] MEDS ORDERED: TAMSULOSIN HCL 0.4 MG CAP PO SCH (17:00)
--- NOTE | 2019-08-22 17:06 | History and Physical ---
CHIEF COMPLAINT: Shortness of breath, pneumonia, and metastatic lung cancer. HISTORY OF PRESENT ILLNESS: An 89-year-old male diagnosed with lung cancer sometime in the mid or late of last year. The patient opts out for comfort measure. He did speak with hospice outpatient, but he at that time was able to care for himself and did not require any pain medication or oxygen support. The patient for the past week or so per his family stated that he has increasing shortness of breath and then subsequently was unable to care for himself, came to the emergency room. CT scan showed metastatic disease of the lung associated with multiple organ failure. He is in lactic acidotic status, but he also had pneumonia as well. The patient is treated with antibiotics initiated in the emergency room. On discharge planning, the patient will need hospice care. At this time, the patient has not had enough time for knowing whether the patient will need general inpatient care for hospice versus treatment and then subsequently going home, but discharge plan will be in process with [facility]. PAST MEDICAL HISTORY: COPD, lung cancer, progressive weight loss, and anorexia. PAST SURGICAL HISTORY: Noncontributory. SOCIAL HISTORY: The patient is a smoker. He denies alcohol use. No recreational drug use. ALLERGIES: FLOMAX. HOME MEDICATIONS: List is reviewed. REVIEW OF SYSTEMS: As mentioned above. PHYSICAL EXAMINATION: VITAL SIGNS: Temperature is 99, blood pressure 100/71, pulse rate is 86, and respirations 22. GENERAL: The patient is not in acute distress. He is awake. HEENT: Normocephalic and atraumatic. Anicteric. NECK: Supple grossly. PULMONARY: Diminished breath sounds bilaterally with coarses and rhonchi. CARDIOVASCULAR: S1 and S2. Regular rate and rhythm. ABDOMEN: Soft, cachexia. EXTREMITIES: No cyanosis or edema. NEUROLOGIC: Awake and alert, very hard of hearing. LABORATORY DATA: Sodium is 132, potassium 3.9, chloride 99, bicarb 17, BUN 36, creatinine 1.6, and glucose 87. Lactic acid level is 4.4. Albumin is 2.2. WBC is 14, hemoglobin 14.1, hematocrit 40.9, and platelets . IMPRESSION: 1. Sepsis with shock. The patient is do not resuscitate. 2. Metastatic lung cancer. The patient had multiple infiltrates in the lung as well and also a liver lesion. 3. Bilateral pneumonia. 4. 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 5. 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 PLAN: We will give the patient aggressive antibiotic treatment. The patient is a DNR, but we will continue to treat the patient. IV Solu-Medrol, normal saline, check lab work. He may have more metastatic disease than noted on the CT scan, therefore, we will give the patient comfort care with pain medication, Pepcid IV, Maalox. We will continue with IV fluids for now. Repeat lab work. Consultation with [facility]. We will monitor the patient closely while planning for the patient to go either home or facility pending on the patient's status. MD ELIZABETH Guo/MARAL /[id number]
[2019-08-22] MEDS: VANCOMYCIN 1GM/NS 250 ML 250 ML IV SCH (17:27)
--- NOTE | 2019-08-22 19:15 | NUR ---
Bedside shift report with morning nurse. Pt alert and orient to name, lying in bed HOB 45 degrees, eyes closed, no distress noted. Family at bedside. Call light within reach. Bed locked. Bed alarm on.
[2019-08-23] VITALS (9 sets, daily range): BP systolic 85–129; BP diastolic 60–91
[2019-08-23] MEDS: PIPERACILLIN/TAZO 2.25 GM 50 ML IV SCH ×5 (00:08→23:00)
[2019-08-23] MEDS: SODIUM CHLORIDE 0.9% 1000ML 1,000 ML IV SCH ×2 (00:08→15:15)
[2019-08-23] MEDS: ALBUTEROL/IPRATROPIUM 3 ML NEB NEB SCH ×4 (01:35→19:15)
[2019-08-23] MEDS: METHYLPREDNISOLONE SOD SUCC 40 MG/ML VIAL 1ML IV SCH ×3 (02:00→17:30)
--- NOTE | 2019-08-23 06:54 | NUR ---
RECEIVED BEDSIDE SHIFT REPORT FROM OFF GOING NURSE. PATIENT IS IN STABLE CONDITION, NO S/S OF DISTRESS NOTED. CALL LIGHT WITHIN REACH. BED IN THE LOWEST POSITION. BED ALARM ON.
--- NOTE | 2019-08-23 07:00 | NUR ---
Bedside shift report given to morning nurse. Pt lying in bed. No s/s at this time. No distress noted.
[2019-08-23] MEDS: SENNOSIDES 8.6 MG TAB PO SCH ×2 (08:35→16:37)
[2019-08-23] MEDS: SUCRALFATE 1 GM/10 ML SUSP PO SCH ×4 (08:35→21:00)
[2019-08-23] MEDS: FAMOTIDINE 20 MG/2 ML VIAL IV SCH ×2 (08:35→16:43)
[2019-08-23] MEDS: ALPRAZOLAM 0.5 MG TAB PO PRN (08:35)
[2019-08-23] MEDS: BENZONATATE 100 MG CAP PO SCH ×3 (08:35→21:00)
--- NOTE | 2019-08-23 09:00 | NUR ---
Bed pump applied to mattress.
--- NOTE | 2019-08-23 09:07 | NUR ---
ABLE TO PRINT AND FAX CLINICALS TO [facility], PLAN IS TO LOOK AT [facility] UNDER RESPITE CARE UNTIL ABLE TO COMPLETE PENDING PAPERWORK. HOSPICE WILL LET KNOW WHEN TRANSPORT IS READY FOR COST CONSULTANT.
[2019-08-23] MEDS: VANCOMYCIN 1GM/NS 250 ML 250 ML IV SCH (18:33)
--- NOTE | 2019-08-23 18:34 | NUR ---
IV LINE TO RIGHT AC INFILTRATED, DCD WITH TIP INTACT. NURSE ATTEMPTED TO START IV X 2, UNSUCCESSFUL. CHARGE NURSE ATTEMPTED TO START IV X2, UNSUCCESSFUL. NOTIFIED DR. BEAL OF BEING UNABLE TO START IV LINE, PER MD ORDER PICC LINE FOR TOMORROW MORNING. ORDER PUT IN.
--- NOTE | 2019-08-23 18:55 | NUR ---
CALLED ELIECER ROMANO (NIECE/DECISION MAKER) TO GET TELEPHONE CONSENT FOR PICC LINE, NO ANSWER, LVM.
--- NOTE | 2019-08-23 19:20 | NUR ---
BEDSIDE SHIFT REPORT GIVEN TO ONCOMING NURSE. PATIENT IS RESTING IN BED, NO ACUTE DISTRESS NOTED AT THIS TIME. CALL LIGHT WITHIN REACH. BED IN THE LOWEST POSITION. ONCOMING NURSE NOTIFIED THAT PATIENT DOES NOT HAVE IV ACCESS AND MD NOTIFIED. ALSO NOTIFIED THAT PICC LINE CONSENT NEEDED, CALLED NIECE AND NO ANSWER, LVM.
--- NOTE | 2019-08-23 19:33 | NUR ---
RECEIVED PT IN BED AOX2 .PT HAS NO IV ACCESS RESPIRATIONS ARE EVEN AND UNLABORED STAGE #1 O SACRUM .ORDER TO PUT PICC LINE TOMORROW CALL LIGHT WITH REACH .CONTINUETO MONITOR
[2019-08-24] VITALS (7 sets, daily range): BP systolic 118–228; BP diastolic 64–111
[2019-08-24] MEDS: SODIUM CHLORIDE 0.9% 1000ML 1,000 ML IV SCH ×2 (01:15→11:36)
[2019-08-24] MEDS: METHYLPREDNISOLONE SOD SUCC 40 MG/ML VIAL 1ML IV SCH ×3 (02:00→18:33)
[2019-08-24] MEDS: ALBUTEROL/IPRATROPIUM 3 ML NEB NEB SCH ×4 (02:05→19:00)
[2019-08-24] MEDS: PIPERACILLIN/TAZO 2.25 GM 50 ML IV SCH ×4 (05:00→23:00)
--- NOTE | 2019-08-24 06:26 | NUR ---
PT HAS NO IV AND ORDER TO PUT PICC LINE .CONSENT SIGNED AND NOTIFIED RADIOLOGIST TO ARRANGE PICC LINE INSERTION .FAMILY AT THE BEDSIDE .CALL LIGHT WITH IN REACH .CONTINUE TO MONITOR
--- NOTE | 2019-08-24 06:53 | NUR ---
PT HAS BRUISES AII OVER TH BODY AND SKIN TEAR AT LEFT AC WRAP WITH GAUZE .BEDSIDE REPORT GIVEN TO THE ONCOMING NURSE
[2019-08-24] MEDS: SUCRALFATE 1 GM/10 ML SUSP PO SCH ×4 (07:30→21:00)
--- NOTE | 2019-08-24 07:35 | NUR ---
PATIENT IN BED RESTING WITH NO S/S OF DISTRESS. BRUISES AND SKIN TEARS ALL OVER THE BODY, MAINLY TO LEFT ARM AND KNEE. BED IN LOWER POSITION, CALL LIGHT AT REACH. FAMILY AT BED SIDE.
[2019-08-24] MEDS: BENZONATATE 100 MG CAP PO SCH ×3 (09:00→21:00)
[2019-08-24] MEDS: SENNOSIDES 8.6 MG TAB PO SCH ×2 (09:00→17:00)
--- NOTE | 2019-08-24 09:56 | Diagnostic Imaging Report ---
EXAM: CHEST XRAY LINE PLACEMENT DATE: 08/24/2019 9:11 AM INDICATION: PICC placement COMPARISON: CT chest from 08/21/2019 IMPRESSION: Left-sided PICC line identified terminating at the junction of the left brachiocephalic vein and SVC. The trachea is midline. There are increased patchy opacities present within the right mid and lower lung zones, better evaluated on the recent prior CT examination. Hyperdense material/calcifications again noted within the medial right lower lung zone. There is no evidence for new large focal consolidation, pneumothorax, or significant pleural effusion. The cardiomediastinal silhouette is within normal limits. No acute osseous abnormality is identified. Signed by: Dr. Jean Castle MD on 08/24/2019 9:53 AM
[2019-08-24] MEDS: FAMOTIDINE 20 MG/2 ML VIAL IV SCH ×2 (11:08→17:13)
--- NOTE | 2019-08-24 11:13 | NUR ---
PICC LINE PLACED TO LEFT UPPER ARM. PATIENT TOLERATED PROCEDURE WELL. OK TO USE.
--- NOTE | 2019-08-24 14:53 | NUR ---
SPOKE WITH SADI AND AT SAME TIME, SADI WANTS TO TRY ABX AND AGREED TO DO ABX AND SEE WHERE PT IS ON WEDNESDAY. LET [facility] KNOW PLAN.
--- NOTE | 2019-08-24 15:12 | NUR ---
PATIENT ASSISTED WITH DIAPER CHANGE. REDNESS REMAINS TO SACRUM, ALLEVYN DRESSING APPLIED. BED IN LOWER POSITION, CALL LIGHT AT REACH.
[2019-08-24] MEDS: VANCOMYCIN 1GM/NS 250 ML 250 ML IV SCH (19:24)
--- NOTE | 2019-08-24 19:29 | NUR ---
RECEIVED PT IN BED AOX1 RESPIRATIONS ARE EVEN AND UNLABORED STAGE #1AT SACRUM .PT HAS RT UPPER PICC LINE CALL LIGHT WITH IN REACH .CONTINUE TO MONITOR
[2019-08-25] VITALS (8 sets, daily range): BP systolic 96–147; BP diastolic 32–96
[2019-08-25] MEDS: ALBUTEROL/IPRATROPIUM 3 ML NEB NEB SCH ×4 (00:10→19:34)
[2019-08-25] MEDS: METHYLPREDNISOLONE SOD SUCC 40 MG/ML VIAL 1ML IV SCH ×3 (02:00→18:06)
[2019-08-25] MEDS: SODIUM CHLORIDE 0.9% 1000ML 1,000 ML IV SCH ×3 (03:48→21:35)
[2019-08-25] MEDS: PIPERACILLIN/TAZO 2.25 GM 50 ML IV SCH (05:00)
[2019-08-25 06:07] LABS: BASOPHILS % 0.6 % (0.0-1.0); HEMATOCRIT 35.2 % (38.2-49.6); HEMOGLOBIN 11.8 g/dL (14.0-18.0); LYMPHOCYTES # (AUTO) 0.3 (1.0-3.2); LYMPHOCYTES % 7.3 % (18.0-39.1); MEAN CORPUSCULAR HEMOGLOBIN 27.9 pg (28-32); MEAN CORPUSCULAR HGB CONC 33.5 g/dL (31-35); MEAN CORPUSCULAR VOLUME 83.2 fL (81-99); MONOCYTES # (AUTO) 0.1 (0.2-0.8); MONOCYTES % 1.1 % (4.4-11.3); NEUTROPHILS # (AUTO) 4.2 (2.1-6.9); NEUTROPHILS % 89.5 % (38.7-80.0); RED BLOOD COUNT 4.23 x10e6/uL (4.3-5.7); RED CELL DISTRIBUTION WIDTH 19.8 % (11.7-14.4)
--- NOTE | 2019-08-25 06:10 | NUR ---
critical lab taken from lab at this time. plts 7.0. this was passed on to Iram Bowling RN, patients primary nurse at this time.
[2019-08-25 06:13] LABS: PLATELET COUNT 7 x10e3/uL (140-360)
[2019-08-25 06:27] LABS: ALBUMIN 1.9 g/dL (3.5-5.0); ALBUMIN/GLOBULIN RATIO 0.6 (0.8-2.0); ANION GAP 15.9 mmol/L (8-16); CALCIUM 7.5 mg/dL (8.4-10.2); CREATININE, SERUM 2.05 mg/dL (0.72-1.25); POTASSIUM 3.9 mmol/L (3.5-5.1)
--- NOTE | 2019-08-25 06:30 | NUR ---
PT RESTING GIVEN DILAUDID X1 .B/P WAS HIGH DR BEAL PAGED AND TOLD TO GIVE PAIN MEDICATION .PT B/P REDUCED .PT HAD BATH .CONTINUE TO MONITOR
--- NOTE | 2019-08-25 07:18 | NUR ---
PLT IS LOW AND TOLD THE LAB TO REDRAW AND BEDSIDE REPORT GIVEN TO THE ONCOMING NURSE .
[2019-08-25 07:25] LABS: LYMPHOCYTES % (MANUAL) 9 % (19-48); MONOCYTES % (MANUAL) 1 % (3.4-9.0); NEUTROPHILS % (MANUAL) 90 % (40-74)
--- NOTE | 2019-08-25 07:25 | NUR ---
REPOSITIONED IN BED BY 2 STAFFS, PATIENT IN BED RESTING WITH NO DISTRESS. CALL LIGHT AT REACH.
[2019-08-25 07:26] LABS: PLATELET ESTIMATE MARKEDLY DECREASED; PLATELET MORPHOLOGY COMMENT NORMAL; RBC MORPHOLOGY COMMENT NORMAL
[2019-08-25] MEDS: SUCRALFATE 1 GM/10 ML SUSP PO SCH (07:30)
[2019-08-25 07:32] LABS: HEMOGLOBIN 12.8 g/dL (14.0-18.0); MEAN CORPUSCULAR HEMOGLOBIN 27.9 pg (28-32); MEAN CORPUSCULAR HGB CONC 33.7 g/dL (31-35); MEAN CORPUSCULAR VOLUME 82.8 fL (81-99); RED BLOOD COUNT 4.59 x10e6/uL (4.3-5.7); RED CELL DISTRIBUTION WIDTH 20.1 % (11.7-14.4)
[2019-08-25 07:34] LABS: PLATELET COUNT 8 x10e3/uL (140-360)
[2019-08-25 07:43] LABS: ANION GAP 17.9 mmol/L (8-16); CALCIUM 7.7 mg/dL (8.4-10.2); CREATININE, SERUM 2.02 mg/dL (0.72-1.25); POTASSIUM 3.9 mmol/L (3.5-5.1)
--- NOTE | 2019-08-25 08:42 | NUR ---
SPOKE WITH MD REGARDING ABNORMAL LAB RESULT, NO NEW ORDER RECEIVED.
[2019-08-25] MEDS: BENZONATATE 100 MG CAP PO SCH ×3 (09:00→21:00)
[2019-08-25] MEDS: SENNOSIDES 8.6 MG TAB PO SCH ×2 (09:00→17:00)
[2019-08-25] MEDS: FAMOTIDINE 20 MG/2 ML VIAL IV SCH (09:36)
[2019-08-25] MEDS ORDERED: HYDRALAZINE HCL 20 MG/ML VIAL IV PRN (09:45)
[2019-08-25] MEDS ORDERED: HYDROMORPHONE 1MG/1ML INJ IV PRN (09:45)
--- NOTE | 2019-08-25 15:50 | NUR ---
PATIENT REPOSITIONED IN BED, NO FACIAL GRIMACING OBSERVED. CALL LIGHT AT REACH, FAMILY MEMBER AT BED SIDE.
--- NOTE | 2019-08-25 19:05 | NUR ---
RECEIVED REPORT FROM PREVIOUS NURSE. CALL LIGHT WITHIN REACH. PATIENT IN BED. PATIENT IS A&OX1. FAMILY AT THE BEDSIDE.
[2019-08-26] VITALS (8 sets, daily range): BP systolic 127–160; BP diastolic 69–99
[2019-08-26] MEDS: ALBUTEROL/IPRATROPIUM 3 ML NEB NEB SCH ×4 (01:09→19:45)
[2019-08-26] MEDS: METHYLPREDNISOLONE SOD SUCC 40 MG/ML VIAL 1ML IV SCH ×3 (02:10→17:45)
[2019-08-26] MEDS: SODIUM CHLORIDE 0.9% 1000ML 1,000 ML IV SCH ×2 (03:15→14:53)
[2019-08-26 06:14] LABS: BASOPHILS % 0.6 % (0.0-1.0); HEMATOCRIT 32.2 % (38.2-49.6); HEMOGLOBIN 10.9 g/dL (14.0-18.0); LYMPHOCYTES # (AUTO) 0.2 (1.0-3.2); MEAN CORPUSCULAR HEMOGLOBIN 28.1 pg (28-32); MEAN CORPUSCULAR HGB CONC 33.9 g/dL (31-35); MONOCYTES % 0.6 % (4.4-11.3); NEUTROPHILS # (AUTO) 4.3 (2.1-6.9); NEUTROPHILS % 89.8 % (38.7-80.0); RED BLOOD COUNT 3.88 x10e6/uL (4.3-5.7); RED CELL DISTRIBUTION WIDTH 19.9 % (11.7-14.4)
[2019-08-26 06:19] LABS: PLATELET COUNT 4 x10e3/uL (140-360)
--- NOTE | 2019-08-26 06:23 | NUR ---
RECEIVED CRITICAL LAB RESULT FROM LAB THAT PATIENT'S PLATELET COUNT IS 4.0. CALLED DR. BEAL AND TOLD HIM WE HAD A CRITICAL AND THE PATIENT'S PLATELET COUNT IS 4.0. DR. BEAL SAID OKAY AND GAVE NO ORDERS.
[2019-08-26 06:34] LABS: ANION GAP 18.7 mmol/L (8-16); CREATININE, SERUM 2.15 mg/dL (0.72-1.25); POTASSIUM 3.7 mmol/L (3.5-5.1)
[2019-08-26 06:40] LABS: CALCIUM 6.7 mg/dL (8.4-10.2)
--- NOTE | 2019-08-26 06:42 | NUR ---
LAB CALLED SAYING THERE IS A CRITICAL LAB FOR THE PATIENT AND HIS CALCIUM IS 6.7. CALLED AND TALKED TO DR. BEAL THAT THE PATIENT'S CALCIUM IS 6.7. DR. BEAL SAID THE PATIENT HAS CANCER AND NOT TO DO ANYTHING.
--- NOTE | 2019-08-26 07:00 | NUR ---
BEDSIDE REPORT DONE. PT IS LYING SUPINE IN BED AND APPEARS TO BE RESTLESS, NO S/S OF DISTRESS. BED SAFETY IMPLEMENTED. FAMILY IS AT THE BEDSIDE
--- NOTE | 2019-08-26 07:22 | NUR ---
GAVE BEDSIDE SHIFT REPORT TO ONCOMING NURSE. PATIENT IN BED ASLEEP. CALL LIGHT WITHIN REACH. FAMILY AT BEDSIDE
[2019-08-26] MEDS: BENZONATATE 100 MG CAP PO SCH ×3 (07:43→19:46)
[2019-08-26] MEDS: SENNOSIDES 8.6 MG TAB PO SCH (07:43)
[2019-08-26 08:02] LABS: ANISOCYTOSIS SLIGHT; BAND NEUTROPHILS % (MANUAL) 3 %; BURR CELLS SLIGHT; LYMPHOCYTES % (MANUAL) 5 % (19-48); MONOCYTES % (MANUAL) 2 % (3.4-9.0); NEUTROPHILS % (MANUAL) 90 % (40-74); PLATELET ESTIMATE MARKEDLY DECREASED; PLATELET MORPHOLOGY COMMENT NORMAL; RBC MORPHOLOGY COMMENT ABNORMAL
[2019-08-26] MEDS: FLUCONAZOLE 200 MG/100 ML 100 ML IV SCH (12:14)
[2019-08-26] MEDS ORDERED: LORAZEPAM INJ 2 MG/ML VIAL IV PRN (12:30)
[2019-08-26] MEDS ORDERED: SCOPOLAMINE 1.5 MG PATCH TOP SCH (12:30)
--- NOTE | 2019-08-26 12:42 | NUR ---
Nutrition Screen Note RD Recommendation for Physician: Continue diet as ordered Plan of Care: RD following monitoring for tolerance and adequacy Nutrition reason for involvement: LOS. Primary Diagnose(s): Pneumonia PMH: COPD, Metastatic Lung cancer, Ht:71 in Wt: 155 lbs BMI:21.6 kg/m2 IBW:[address] Assessment: Initial encounter with patient. Diet Hx: pt has no known food allergies. Family present. Pt/family have opted for Hospice. Pt is to discharge to hospice care with [facility] on Wednesday. No nutrition support or intervention are desired at this time due to desire for hospice care. Current Diet: regular diet Malnutrition Evaluation (08/26/2019) Pt discharging to hospice Diet Education Needs Assessment: Diet education not indicated at this time. Nutrition Care Level: bhaskar Dunlap RD, LD, [facility]
[2019-08-26] MEDS: HYDROMORPHONE 1MG/1ML INJ IV PRN (13:55)
[2019-08-26] MEDS: AZTREONAM 1 GM/NS 50 ML 50 ML IV SCH (13:55)
[2019-08-26] MEDS ORDERED: VANCOMYCIN 1GM/NS 250 ML 250 ML IV SCH (14:00)
--- NOTE | 2019-08-26 19:10 | NUR ---
RECEIVED REPORT FROM PREVIOUS NURSE. CALL LIGHT WITHIN REACH. PATIENT IN BED. FAMILY AT BEDSIDE.
--- NOTE | 2019-08-26 20:08 | NUR ---
CALLED AND LEFT A VOICEMAIL FOR DR. BEAL TO TELL HIM THE PATIENT IS HAVING A TEMPERATURE OF 93.9. WAITING FOR DR. BEAL TO CALL BACK
[2019-08-27] VITALS (8 sets, daily range): BP systolic 81–137; BP diastolic 40–74
[2019-08-27] MEDS: ALBUTEROL/IPRATROPIUM 3 ML NEB NEB SCH ×4 (00:45→20:07)
[2019-08-27] MEDS: METHYLPREDNISOLONE SOD SUCC 40 MG/ML VIAL 1ML IV SCH ×3 (01:00→18:31)
[2019-08-27] MEDS: AZTREONAM 1 GM/NS 50 ML 50 ML IV SCH ×2 (01:00→12:11)
--- NOTE | 2019-08-27 07:00 | NUR ---
bedside report done. pt is sleeping, no s/s of distress. pt is receiving breathing treatment. bed safety in place. family member at the bedside
[2019-08-27] MEDS: SODIUM CHLORIDE 0.9% 1000ML 1,000 ML IV SCH ×3 (07:03→23:30)
--- NOTE | 2019-08-27 07:11 | NUR ---
GAVE REPORT TO ONCOMING NURSE. CALL LIGHT WITHIN REACH. PATIENT ASLEEP IN BED. FAMILY AT THE BEDSIDE
[2019-08-27] MEDS: BENZONATATE 100 MG CAP PO SCH ×3 (08:05→19:45)
[2019-08-27] MEDS: HYDROMORPHONE 1MG/1ML INJ IV PRN (10:25)
[2019-08-27] MEDS: FLUCONAZOLE 200 MG/100 ML 100 ML IV SCH (12:44)
[2019-08-27] MEDS: HYDROMORPHONE 1MG/1ML INJ IV SCH ×3 (13:54→21:22)
[2019-08-27] MEDS: LORAZEPAM INJ 2 MG/ML VIAL IV SCH ×2 (18:31→23:30)
--- NOTE | 2019-08-27 19:07 | NUR ---
RECEIVED REPORT FROM PREVIOUS NURSE. CALL LIGHT WITHIN REACH. PATIENT IN BED. FAMILY AT THE BEDSIDE.
[2019-08-28] VITALS: BP 83/38
[2019-08-28] MEDS: ALBUTEROL/IPRATROPIUM 3 ML NEB NEB SCH ×3 (00:55→13:26)
[2019-08-28] MEDS: AZTREONAM 1 GM/NS 50 ML 50 ML IV SCH ×2 (01:24→13:00)
[2019-08-28] MEDS: METHYLPREDNISOLONE SOD SUCC 40 MG/ML VIAL 1ML IV SCH ×2 (01:24→09:57)
[2019-08-28] MEDS: HYDROMORPHONE 1MG/1ML INJ IV SCH ×4 (01:24→13:51)
[2019-08-28 04:00] VITALS: BP 86/30
[2019-08-28] MEDS: LORAZEPAM INJ 2 MG/ML VIAL IV SCH ×2 (05:48→12:01)
--- NOTE | 2019-08-28 07:03 | NUR ---
GAVE BEDSIDE SHIFT REPORT TO ONCOMING NURSE. CALL LIGHT WITHIN REACH. PATIENT IN BED ASLEEP.
--- NOTE | 2019-08-28 07:30 | NUR ---
PT IN BED ,NO S/S DISCOMFORT,UNRESPONSIVE,MOANS WHEN REPOSITIONED,
--- NOTE | 2019-08-28 08:00 | NUR ---
UNABLE TO GET BP ON PT ,INFORMED DR BEAL ,
[2019-08-28] MEDS: BENZONATATE 100 MG CAP PO SCH (09:00)
--- NOTE | 2019-08-28 10:00 | NUR ---
PT RESTING,RESP VERY SHALLOW STILL UNABLE TO GET BP ON PT.FAmily at bedside
[2019-08-28] MEDS: FLUCONAZOLE 200 MG/100 ML 100 ML IV SCH (12:01)
--- NOTE | 2019-08-28 14:39 | NUR ---
PT REPOSITIONED FOR COMFORT,NO S/S DISCOMFORT.RESP VERY SHALLOW
--- NOTE | 2019-08-28 14:57 | NUR ---
spoke with bessy(niece) informed of condition.
--- NOTE | 2019-08-28 15:25 | NUR ---
WENT TO PT ROOM UNABLE TO ASCULTATE HR,ASSIT CHEMIST ALSO IN ROOM
--- NOTE | 2019-08-28 15:33 | NUR ---
DR EMIGDIO TIJERINA DOC CAME AND PRONOUCED
--- NOTE | 2019-08-28 16:30 | NUR ---
family in room with pt.
--- NOTE | 2019-08-28 17:05 | NUR ---
ATTEMPTED TO CALL [facility] NO ANSWER
--- NOTE | 2019-08-28 18:00 | NUR ---
STILL NO ANSWER AT HOME
== END 2019-08-28 21:00 | disposition expired | DRG 871 ==
LOC: ER 13:01 → ERHOLD 18:23 → MED/SURG3 20:59
PROVIDERS: ADMIT Internal Medicine; ATTEND Internal Medicine
PROC: 02HV33Z Insertion of Infusion Device into Superior Vena Cava, Percutaneous Approach (ICD-10-PCS; principal; 2019-08-24)
DX: A41.9 Sepsis, unspecified organism (principal); J18.9 Pneumonia, unspecified organism; R65.21 Severe sepsis with septic shock; E43 Unspecified severe protein-calorie malnutrition; E87.2 Acidosis; C34.90 Malignant neoplasm of unspecified part of unspecified bronchus or lung; C78.7 Secondary malignant neoplasm of liver and intrahepatic bile duct; Z51.5 Encounter for palliative care; R63.0 Anorexia; R62.7 Adult failure to thrive; J43.9 Emphysema, unspecified; F17.200 Nicotine dependence, unspecified, uncomplicated; Z66 Do not resuscitate; D69.6 Thrombocytopenia, unspecified; Z68.21 Body mass index [BMI] 21.0-21.9, adult
CPT/HCPCS: 36415; 36569; 71260; 74177; 80048; 80053; 83605; 85007; 85025; 85027; 87040; 87070; 87071; 87186; 87205; 94640; 96361; 99284; J0692; J0696; J1170; J1450; J2060; J2270; J2543; J2920; J3370; J7030; J7040; Q9967